=== PATIENT | male | born 1985 | race Caucasian/White ===

== ENCOUNTER 2019-05-19 11:58 | Emergency (ER) | payer BC, OTHER ==
[2019-05-19 12:03] VITALS: TEMP 98.3
--- NOTE | 2019-05-19 12:23 | ED ---
General Adult HPI - General Chief complaint: Fever Stated complaint: fever Time Seen by Provider: 05/19/19 12:01 Source: patient Mode of arrival: ambulatory Limitations: no limitations - History of Present Illness Initial comments: Dictation was produced using [employer] dictation software. please excuse any grammatical, word or spelling errors. This patient was cared for during a federal and state declared state of emergency secondary to Covid 19 Chief Complaint: 33-year-old male presents suprapubic pain and fevers History of Present Illness: Patient is a 33-year-old male he states that over the last 4 days she's been having suprapubic abdominal pain and fevers. Patient states that the pain is suprapubic radiates laterally. Denies any testicular pain. Patient denies any vomiting however does complain of some mild nausea and depressed appetite. He has had some diarrhea. Patient has talked to telemetry nurse and was concerned that perhaps maybe patient would benefit for some Flomax. He did not take this medication. He has been checking his temperature at home with Tylenol. He has not been exposed to anybody with Covid. Isolated his house for approximately 3 weeks. He denies any chest pain shortness of breath. The ROS documented in this emergency department record has been reviewed and confirmed by me. Those systems with pertinent positive or negative responses have been documented in the HPI. All other systems are other negative and/or noncontributory. PHYSICAL EXAM: General Impression: Alert and oriented x3, not in acute distress HEENT: Normocephalic atraumatic, extra-ocular movements intact, pupils equal and reactive to light bilaterally, mucous membranes moist. Cardiovascular: Heart regular rate and rhythm Chest: Able to complete full sentences, no retractions, no tachypnea Abdomen: Bowel sounds present, abdomen soft, non-tender, non-distended, no organomegaly Musculoskeletal: Pulses present and equal in all extremities, no peripheral edema Motor: no focal deficits noted Neurological: CN II-XII grossly intact, no focal motor or sensory deficits noted Skin: Intact with no visualized rashes Psych: Normal affect and mood ED course: 33 y Old male presents with abdominal pain and fevers. Upon arrival are within acceptable limits. Patient is well-appearing. He has no pain at McBurney's point. Abdomen is soft. Return evaluation obtained. CBC, metabolic panel, urinalysis is negative. Chest x-ray shows no acute processes. Repeat vitals shows no acute processes. Patient is afebrile. Patient discharged told to follow-up with his primary care physician. - Related Data Home Medications Medication Instructions Recorded Confirmed Tamsulosin HCl [Flomax] 0.4 mg PO DAILY 05/19/19 05/19/19 Allergies Allergy/AdvReac Type Severity Reaction Status Date / Time naproxen Allergy Unknown Verified 05/19/19 13:24 Review of Systems ROS Statement: Those systems with pertinent positive or pertinent negative responses have been documented in the HPI. ROS Other: All systems not noted in ROS Statement are negative. Past Medical History Past Medical History: Asthma Additional Past Medical History / Comment(s): HYPERGLYCEMIA History of Any Multi-Drug Resistant Organisms: None Reported Past Surgical History: Adenoidectomy, Tonsillectomy Past Psychological History: No Psychological Hx Reported Smoking Status: Never smoker Past Alcohol Use History: None Reported Past Drug Use History: None Reported General Exam Limitations: no limitations Course Vital Signs 05/19/19 05/19/19 05/19/19 12:00 12:03 13:17 Temperature 98.3 F Pulse Rate 86 Respiratory 18 20 Rate Blood Pressure 138/84 106/81 O2 Sat by Pulse 100 97 Oximetry 05/19/19 05/19/19 05/19/19 13:18 13:30 14:00 Temperature Pulse Rate 78 Respiratory 20 18 Rate Blood Pressure 106/81 106/81 119/76 O2 Sat by Pulse 98 96 96 Oximetry Medical Decision Making - Lab Data Result diagrams: 05/19/19 12:35 05/19/19 12:35 Lab Results 05/19/19 05/19/19 05/19/19 Range/Units 12:35 12:35 13:30 WBC 5.1 (3.8-10.6) k/uL RBC 4.92 (4.30-5.90) m/uL Hgb 14.1 (13.0-17.5) gm/dL Hct 40.9 (39.0-53.0) % MCV 83.1 (80.0-100.0) fL MCH 28.6 (25.0-35.0) pg MCHC 34.4 (31.0-37.0) g/dL RDW 12.7 (11.5-15.5) % Plt Count 256 (150-450) k/uL Neutrophils % 63 % Lymphocytes % 20 % Monocytes % 11 % Eosinophils % 1 % Basophils % 0 % Neutrophils # 3.2 (1.3-7.7) k/uL Lymphocytes # 1.0 (1.0-4.8) k/uL Monocytes # 0.6 (0-1.0) k/uL Eosinophils # 0.1 (0-0.7) k/uL Basophils # 0.0 (0-0.2) k/uL Sodium 140 (137-145) mmol/L Potassium 3.9 (3.5-5.1) mmol/L Chloride 104 (98-107) mmol/L Carbon Dioxide 24 (22-30) mmol/L Anion Gap 12 mmol/L BUN 15 (9-20) mg/dL Creatinine 0.91 (0.66-1.25) mg/dL Est GFR (CKD-EPI)AfAm >90 (>60 ml/min/1.73 sqM) Est GFR (CKD-EPI)NonAf >90 (>60 ml/min/1.73 sqM) Glucose 96 (74-99) mg/dL Calcium 9.7 (8.4-10.2) mg/dL Total Bilirubin 0.9 (0.2-1.3) mg/dL AST 29 (17-59) U/L ALT 28 (4-49) U/L Alkaline Phosphatase 73 (38-126) U/L Total Protein 7.6 (6.3-8.2) g/dL Albumin 4.8 (3.5-5.0) g/dL Lipase 51 (23-300) U/L Urine Color Yellow Urine Appearance Clear (Clear) Urine pH 6.0 (5.0-8.0) Ur Specific [place] 1.028 (1.001-1.035) Urine Protein 1+ H (Negative) Urine Glucose (UA) Negative (Negative) Urine Ketones Negative (Negative) Urine Blood Trace H (Negative) Urine Nitrite Negative (Negative) Urine Bilirubin Negative (Negative) Urine Urobilinogen <2.0 (<2.0) mg/dL Ur Leukocyte Esterase Negative (Negative) Urine WBC <1 (0-5) /hpf Urine Mucus Few H (None) /hpf Disposition Clinical Impression: Fever Disposition: HOME SELF-CARE Condition: Good Instructions (If sedation given, give patient instructions): Fever in Adults (ED) Is patient prescribed a controlled substance at d/c from ED?: No Referrals: Rachid Hayes DO [Primary Care Provider] - 1-2 days Time of Disposition: 14:29
[2019-05-19 13:05] LABS: Basophils % (A) 0 %; Eosinophils # (A) 0.1 k/uL (0-0.7); Eosinophils % (A) 1 %; HCT 40.9 % (39.0-53.0); HGB 14.1 gm/dL (13.0-17.5); Lymphocytes % (A) 20 %; MCH 28.6 pg (25.0-35.0); MCHC 34.4 g/dL (31.0-37.0); MCV 83.1 fL (80.0-100.0); Mean Platelet Volume 6.9; Monocytes # (A) 0.6 k/uL (0-1.0); Monocytes % (A) 11 %; Neutrophils # (A) 3.2 k/uL (1.3-7.7); Neutrophils % (A) 63 %; Platelet Count 256 k/uL (150-450); RBC 4.92 m/uL (4.30-5.90); RDW 12.7 % (11.5-15.5); WBC 5.1 k/uL (3.8-10.6)
--- NOTE | 2019-05-19 13:07 | XR ---
EXAMINATION TYPE: XR chest 1V portable DATE OF EXAM ORDERED: 05/19/2019 HISTORY: abdominal pain. REFERENCE: None. FINDINGS: The lungs are clear. Pleural spaces are clear. Heart size is normal. IMPRESSION: NORMAL CHEST.
[2019-05-19 13:15] LABS: ALT 28 U/L (4-49); AST 29 U/L (17-59); African American GFR (CKD) >90 (>60 ml/min/1.73 sqM); Albumin 4.8 g/dL (3.5-5.0); Alkaline Phosphatase 73 U/L (38-126); Anion Gap 12 mmol/L; Blood Urea Nitrogen 15 mg/dL (9-20); Calcium 9.7 mg/dL (8.4-10.2); Carbon Dioxide 24 mmol/L (22-30); Chloride 104 mmol/L (98-107); Glucose 96 mg/dL (74-99); Non-African American GFR(CKD) >90 (>60 ml/min/1.73 sqM); Potassium 3.9 mmol/L (3.5-5.1); Sodium 140 mmol/L (137-145); Total Bilirubin 0.9 mg/dL (0.2-1.3); Total Protein 7.6 g/dL (6.3-8.2)
[2019-05-19 13:19] VITALS: PULSE 78
[2019-05-19 14:14] VITALS: BP 119/76
[2019-05-19 14:17] LABS: Appearance,Urine Clear (Clear); Bilirubin,Urine Negative (Negative); Blood,Urine Trace (Negative); Color,Urine Yellow; Glucose,Urine (UA) Negative (Negative); Ketones,Urine Negative (Negative); Leukocyte Esterase,Urine Negative (Negative); Mucus,Urine Few /hpf; Nitrite,Urine Negative (Negative); Protein,Urine 1+ (Negative); Specific Gravity,Urine 1.028 (1.001-1.035); Urobilinogen,Urine <2.0 mg/dL (<2.0); WBC,Urine <1 /hpf (0-5)
[2019-05-19 14:37] VITALS: RESP 20
== END 2019-05-19 14:36 | disposition home or self-care (01) ==
LOC: EC 11:58
DX: R50.9 Fever, unspecified (principal); R10.30 Lower abdominal pain, unspecified; R11.0 Nausea; R19.7 Diarrhea, unspecified; R63.0 Anorexia; Z88.6 Allergy status to analgesic agent
CPT/HCPCS: 36415; 71045; 80053; 81001; 83690; 85025; 99284

== ENCOUNTER → 2023-02-08 | Outpatient (CLI) | payer BC, OTHER ==
--- NOTE | 2023-02-08 09:43 | XR ---
EXAMINATION TYPE: XR cervical spine comp DATE OF EXAM: 02/08/2023 COMPARISON: None HISTORY: Cervicalgia TECHNIQUE: 5 view cervical spine FINDINGS: Prevertebral space is normal. Posterior spinal lamellar line is intact. Vertebral body heig hts are preserved. Subtle disc space narrowing may be present C5-6 C6-7. Disc spaces are otherwise un remarkable. Foramen are widely patent. Odontoid is limited with overlying maxilla IMPRESSION: 1. There may be minimal subtle degenerative disc spaces at C5-6 and C6-7.
== END | disposition home or self-care (01) ==
LOC: RADXRYALE 08:37
PROVIDERS: ATTEND Family Medicine
DX: M54.2 Cervicalgia (principal)
CPT/HCPCS: 72050

== ENCOUNTER → 2023-03-24 | Outpatient (CLI) | payer BC ==
--- NOTE | 2023-03-24 21:28 | CT ---
EXAMINATION TYPE: CT chest w con DATE OF EXAM: 03/24/2023 COMPARISON: None HISTORY: 37-year-old male R22.2 LOCALIZED SWELLING, MASS AND LUMP, TRUNK. Left shoulder pain x 4 mon ths TECHNIQUE: Contiguous axial scanning of the chest after the administration of 100 mL of Isovue 300. Coronal/sagittal reconstructions performed. CT DLP: 529mGycm. Automatic exposure control utilized for a dose reduction. FINDINGS: The heart is normal size without pericardial effusion. Aorta normal caliber with conventional arch vessel branching anatomy. No thoracic lymphadenopathy by CT size criteria. Prominent but nonenlarged 9 mm left hilar lymph node . Lungs show no consolidation or pleural effusion. Questionable gastric fold thickening in the visualized upper abdomen. There also appears to be some d iminished attenuation of the hepatic parenchyma that may represent fatty infiltration. Bones: Mild degenerative change in the bilateral sternoclavicular joints. No osseous destructive proc ess. IMPRESSION: 1. No acute pulmonary process. 2. There appears to be some diffuse gastric fold thickening in the visualized upper abdomen. Correlat e with symptoms to exclude underlying gastritis. There may also be underlying hepatic steatosis.
== END | disposition home or self-care (01) ==
LOC: RADCTMAIN 16:36
PROVIDERS: ATTEND Family Medicine
DX: K31.89 Other diseases of stomach and duodenum (principal); M25.512 Pain in left shoulder; M54.6 Pain in thoracic spine; R22.2 Localized swelling, mass and lump, trunk; R20.2 Paresthesia of skin
CPT/HCPCS: 71260; Q9967

== ENCOUNTER → 2023-04-14 | Outpatient (CLI) | payer BC ==
--- NOTE | 2023-04-15 09:27 | MR ---
EXAMINATION TYPE: MR thoracic spine wo con DATE OF EXAM: 04/14/2023 COMPARISON: CT chest March 24, 2023 HISTORY: Mid back pain around left shoulder blade, marker placed in area of "palpable lump". TECHNIQUE: Multiplanar, multisequence imaging of thoracic spine is performed without contrast FINDINGS: Spinal cord shows normal course, caliber, and signal as it courses the thoracic spine. Shazia tebral body heights and alignment are satisfactory. Disc space heights are maintained. Bone marrow si gnal intensity is preserved. Posterior disc herniation seen at C6-C7 level effacing anterior thecal s ac on sagittal image 8. Additional posterior disc herniation seen effacing the anterior thecal sac at T8-T9 level on sagittal image 9. Review of the axial images shows right paracentral disc protrusion effacing anterolateral thecal sac with slight indentation of the ventral surface of the right spinal cord axial image 14 series 701 at T8-T9 level. No additional significant disc herniations are seen. Palpable lump noted on sagittal ariel ge 1 less well seen on axial images is at the level of the left T8-T9 disc space. Note is made contin uous axial imaging was not performed and coronal images did not include the marker. No obvious solid or cystic mass or focal fluid collection is seen at this level on this study or recent CT. Symmetric normal-appearing paraspinal muscles are noted. IMPRESSION: No obvious mass at site of palpable abnormality. Degenerative change at T8-T9 level is no mely.
== END | disposition home or self-care (01) ==
LOC: RADMRIMAIN 14:38
PROVIDERS: ATTEND Family Medicine
DX: M47.814 Spondylosis without myelopathy or radiculopathy, thoracic region (principal); M62.830 Muscle spasm of back; R22.2 Localized swelling, mass and lump, trunk
CPT/HCPCS: 72146